=== PATIENT | male | born 1980 | race Caucasian/White ===

== ENCOUNTER 2020-09-21 01:10 | Emergency (ER) | payer MEDICAID ==
[~2020-09-21] VITALS: Ht 175.3 cm; Wt 77.1 kg
[2020-09-21 01:14] VITALS: BP 129/89
[2020-09-21] MEDS ORDERED: cefTRIAXone 1,000 MG in LIDOCAINE MPF 1% 2.1 ML IM ONE (02:05)
[2020-09-21] MEDS ORDERED: DEXAMETHASONE 10 MG/ML VIAL IM ONE (02:05)
[2020-09-21] MEDS ORDERED: PRED20TA5 PO (02:07)
[2020-09-21] MEDS ORDERED: AMOX500C25 PO (02:07)
[2020-09-21] MEDS ORDERED: IBUP-2213 PO (02:07)
[2020-09-21] MEDS ORDERED: cefTRIAXone 1,000 MG VIAL ONE (02:27)
[2020-09-21] MEDS ORDERED: LIDOCAINE MPF 1% 5 ML ONE (02:28)
[2020-09-21 03:12] VITALS: BP 129/89
== END 2020-09-21 03:12 | disposition home or self-care (01) ==
LOC: MED 01:10
DX: J03.90 Acute tonsillitis, unspecified (principal); Z79.899 Other long term (current) drug therapy
CPT/HCPCS: 87081; 96372; 99284; J0696; J1100; J2001